=== PATIENT | female | born 1995 | race Caucasian/White ===

== ENCOUNTER 2017-06-14 19:17 | Emergency (ER) | payer OTHER ==
[2017-06-14 19:23] VITALS: TEMP 98.2
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
[2017-06-14] MEDS ORDERED: IBUPROFEN 800 MG TAB PO ONE ×2 (20:11→20:12)
[2017-06-14 21:14] VITALS: BP 131/84; PULSE 80; RESP 18; O2SAT 99
== END 2017-06-14 21:14 | disposition home or self-care (01) ==
LOC: EDUNIT#
DX: S16.1XXA Strain of muscle, fascia and tendon at neck level, initial encounter (principal); Z79.82 Long term (current) use of aspirin; V49.50XA Passenger injured in collision with unspecified motor vehicles in traffic accident, initial encounter; Y92.410 Unspecified street and highway as the place of occurrence of the external cause; Y99.8 Other external cause status

== ENCOUNTER 2017-06-15 23:06 | Observation (INO) | payer OTHER ==
[2017-06-15] MEDS ORDERED: ONDANSETRON DISINTEGRATING 4 MG TAB PO ONE (23:51)
[2017-06-16] MEDS ORDERED: KETOROLAC 15 MG/1 ML SDV IM ONE (00:08)
[2017-06-16] MEDS ORDERED: SUMAtriptan 6 MG/0.5 ML VIAL SC ONE (00:08)
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
[2017-06-16] MEDS ORDERED: METOCLOPRAMIDE 10 MG/2 ML VIAL IVP ONE (00:18)
[2017-06-16] MEDS ORDERED: NS 1,000 ML IV ONE (00:18)
[2017-06-16] MEDS ORDERED: ACETAMINOPHEN 325 MG TAB PO PRN (02:03)
[2017-06-16] MEDS ORDERED: ONDANSETRON DISINTEGRATING 4 MG TAB PO PRN (02:03)
[2017-06-16] MEDS ORDERED: ONDANSETRON 4 MG/2 ML VIAL IVP PRN (02:03)
[2017-06-16] MEDS ORDERED: oxyCODONE IR 5 MG TAB PO PRN (02:03)
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
[2017-06-16 07:40] VITALS: BP 120/72; PULSE 59; RESP 15; TEMP 98.5; O2SAT 95
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
--- NOTE | 2017-06-16 16:30 | ASDISCHSUM ---
Discharge Information Plan Status:Home with No Needs Medically Cleared to Leave:06/15/2017 Discharge Date:06/16/2017 09:15 AM CM D/C Disposition: ADT D/C Disposition:Home, Routine, Self-Care Projected Discharge Date:06/16/2017 12:00 AM Transportation at D/C: Discharge Delay Reason: Follow-Up Date:06/16/2017 12:00 AM Discharge Slot: Final Diagnosis: Placement Information Patient Contact Information Contact Name:MARI Relationship:Mother Address:[address] Work Phone: City:[place] Alternate Phone: [facility]/Zip Code:[place] [address] Email: Financial Information Financial Class:Commercial Primary Plan Desc:[employer] Primary Plan Number:[id number] Secondary Plan Desc:[facility] Secondary Plan Number:[id number] Assessment Information Intervention Information
== END 2017-06-16 09:15 | disposition home or self-care (01) ==
LOC: F3N 06-16 01:40
PROVIDERS: ADMIT Neurological Surgery; ATTEND Neurological Surgery
PROC: 3E0337Z Introduction of Electrolytic and Water Balance Substance into Peripheral Vein, Percutaneous Approach (ICD-10-PCS; principal; 2017-06-16)
DX: S06.9X0A Unspecified intracranial injury without loss of consciousness, initial encounter (principal); E86.9 Volume depletion, unspecified; V49.10XA Passenger injured in collision with unspecified motor vehicles in nontraffic accident, initial encounter; Y92.410 Unspecified street and highway as the place of occurrence of the external cause; Y99.8 Other external cause status
CPT/HCPCS: 70450; 96361; 96372; 96374; 99285; G0378; J1885; J2765; J3030

== ENCOUNTER 2018-12-16 05:42 | Day surgery (SDC) | payer OTHER | END 2018-12-16 11:09 | disposition home or self-care (01) | LOC: FSGY 05:42 ==